=== PATIENT | female | born 1935 | race Caucasian/White ===

== ENCOUNTER 2020-10-30 11:21 | Day surgery (SDC) | payer OTHER, BC ==
[2020-10-25 14:30] LABS: Absolute Lymphocytes (CBC) 3.2 K/uL (0.7-4.9); Basophils % 0.4 % (0-1.3); Hematocrit 36.3 % (36.0-45.0); Lymphocytes % 38.6 % (15.3-44.8); MPV 7.4 fL (7.6-11.3); RBC Red Blood Cell Count 4.08 M/uL (3.86-4.86)
[2020-10-25 14:30] LABS: Urine Appearance CLEAR (Clear); Urine Bilirubin NEGATIVE (Negative); Urine Blood NEGATIVE (Negative); Urine Color YELLOW (Yellow); Urine Glucose NEGATIVE (Negative); Urine Protein NEGATIVE (Negative); Urine Urobilinogen 0.2 mg/dL (0.2-1.0); Urine pH 6.5 (5.0-7.0)
[2020-10-25 14:34] LABS: Urine Microscopic Reflex NO UMIC
[2020-10-25 14:49] LABS: Protime INR 1.01
[2020-10-25 14:53] LABS: Potassium 3.9 mmol/L (3.5-5.1)
[2020-10-30] MEDS ORDERED: propofoL 200 MG/20 ML VIAL IV ONE (11:44)
[2020-10-30] MEDS ORDERED: FENTANYL CITR 100 MCG/2 ML ONE ×2 (11:44→13:21)
[2020-10-30] MEDS ORDERED: LIDOCAINE 1% MPF 5 ML VIAL ONE (11:44)
[2020-10-30] MEDS ORDERED: ONDANSETRON 4 MG/2 ML VIAL ONE (11:45)
[2020-10-30] MEDS ORDERED: Ringers Lactate 1,000 ML IV ONE ×2 (11:46→13:38)
[2020-10-30] MEDS ORDERED: CEFAZOLIN/SWI 1gm 2 GM/20 ML SYR ONE (11:47)
[2020-10-30] MEDS ORDERED: ACETAMINOPHEN 500 MG TAB ONE (11:59)
[2020-10-30] MEDS ORDERED: GLYCOPYRROLATE 0.2 MG/ML SYR ONE (12:24)
[2020-10-30] MEDS ORDERED: dexAMETHasone 10 MG/ML VIAL ONE (12:44)
[2020-10-30] MEDS ORDERED: BUPIVACAINE 0.25% PF 30 ML VIAL ONE (12:44)
[2020-10-30] MEDS ORDERED: CEFAZOLIN/SWI 1gm 1 GM/10 ML SYR ONE (12:56)
[2020-10-30] MEDS ORDERED: NA CHLORIDE 0.9% 100 ML IV ONE (12:56)
[2020-10-30] MEDS ORDERED: VASOPRESSIN 20 UNIT/ML VIAL ONE (12:56)
[2020-10-30] MEDS ORDERED: MORPHINE 10 MG/ML VIAL ONE (14:43)
[2020-10-30] MEDS ORDERED: ONDANSETRON 4 MG/2 ML VIAL IV PRN (14:57)
[2020-10-30] MEDS ORDERED: PROMETHAZINE INJ 25 MG/ML AMP IV PRN (14:57)
[2020-10-30] MEDS ORDERED: Ringers Lactate 1,000 ML IV SCH ×2 (15:00→18:00)
--- NOTE | 2020-10-30 15:10 | P.BOP ---
Preoperative diagnosis: stg3 ant/apical, [id number], occult ANDREW Postoperative diagnosis: same, but only unilateral(Rt) 3rd degree PVD Primary procedure: A/P repairs, ant Rt SSLF colpo-hysteropexy, post enterocele repair, MUS Secondary procedure: perineorrhaphy cysto Gauge Maker: Asia Alexander Estimated blood loss: 50 Specimen: none Findings: -2/+2/+1/5/mod/8/-1/-1/-1,transverse ant wall fascial defect SSR,cysto joyner Anesthesia: General Complications: None Drain(s): Urinary catheter Implants: TVT-O Fluids & blood products: 1L LR Transferred to: Recovery Room Condition: Good
[2020-10-30 15:16] VITALS: O2SAT 100
[2020-10-30 16:02] LABS: Absolute Lymphocytes (CBC) 2.1 K/uL (0.7-4.9); Basophils % 0.5 % (0-1.3); Hematocrit 33.7 % (36.0-45.0); Lymphocytes % 16.3 % (15.3-44.8); RBC Red Blood Cell Count 3.82 M/uL (3.86-4.86)
[2020-10-30 16:23] LABS: Potassium 4.1 mmol/L (3.5-5.1)
[2020-10-30 17:15] VITALS: BMI 24.5
[2020-10-30] MEDS: HYDROMORPHONE HCL 1 MG/ML INJ IV PRN ×2 (17:46→23:45)
[2020-10-30] MEDS: ACETAMINOPHEN 500 MG TAB PO PRN (20:00)
[2020-10-30] MEDS ORDERED: ATORVASTATIN 10 MG TAB PO SCH (21:00)
[2020-10-31 05:26] LABS: Hematocrit 31.6 % (36.0-45.0)
[2020-10-31] MEDS ORDERED: VIT D3 PO SCH (09:00)
[2020-10-31] MEDS ORDERED: AMLODIPINE 2.5 MG TAB PO SCH (09:00)
[2020-10-31] MEDS ORDERED: DOCUSATE NA 100 MG CAP PO SCH (09:00)
[2020-10-31] MEDS ORDERED: MGOX PO SCH (09:00)
[2020-10-31] MEDS ORDERED: [UNRECOGNIZED DRUG - OTHER] PO SCH (09:00)
[2020-10-31] MEDS ORDERED: CA CITRATE PO SCH (09:00)
[2020-10-31] MEDS ORDERED: HOME MED 1 EA UNK (Naproxen Sodium [Aleve] 220 MG Tablet) PO SCH (09:00)
[2020-10-31] MEDS ORDERED: FEXOFENADINE 180 MG TAB PO SCH (09:00)
[2020-10-31] MEDS ORDERED: HOME MED 1 EA UNK (Losartan/Hydrochlorothiazide [Losartan-Hctz 100-25 Mg Tab] 1 EACH Table PO SCH (09:00)
[2020-10-31] MEDS ORDERED: B6 PO SCH (09:00)
[2020-10-31] MEDS: ACETAMINOPHEN 500 MG TAB PO PRN (10:22)
[2020-10-31 11:31] VITALS: BP 149/81
[2020-10-31 14:54] VITALS: TEMP 98.3
--- NOTE | 2020-11-04 21:32 | OP ---
Date of Procedure: 10/30/2020 Surgeon: Nina Carlisle MD Air Quality Specialist: Asia Alexander. 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 Primary Procedure: Anterior-posterior repairs, anterior approach right sacrospinous ligament fixatio n, colpohysteropexy, posterior enterocele repair, midurethral sling transobturator perineorrhaphy, an d cystoscopy. Anesthesia: General endotracheal. Estimated Blood Loss: 50. Specimens: None. Complications: No complications. Drains: Urinary catheter. Packings: Small vaginal packing. Implants: TVTO. Fluids: 1 L. Condition: The patient was transferred to the recovery room in stable condition. Findings: POP-Q -2, +2, +1, 5, moderate 8, -1, -1, -1, transverse anterior wall fascial defect for w hich a site-specific repair was done. Cysto with patent ureters. Indications: The patient is an 85-year-old female with symptomatic vaginal prolapse, unable to be co ntinuing pessary management, desired vaginal closure or a definitive treatment for her prolapse. She was consented for colpocleisis and perineorrhaphy in the mid urethral sling; however, fully understa nding that. Reconstructive repair had to be done if the colpocleisis is not feasible. She was conse nted and brought to the OR. She had a medical clearance prior to the procedure. Procedure In Detail: After informed consent was re-verified, the patient was taken back to the OR an d placed in a supine fashion on the operating table. Ancef was given. SCDs were started. After she was placed under anesthesia, she was positioned in the dorsal lithotomy position. Arms were positio shanelle appropriately, SCDs were started, time-out was done, and the procedure started. Lower abdomen, vulva, vagina, and perineum were prepped and draped in a sterile fashion. Bueno was p laced to drain the bladder and POP-Q was done as dictated above. Once I realized that the posterior wall defect was not very significant and that the left paravaginal support was actually significantly better than what was anticipated on clinical evaluation, the right paravaginal support was completel y lost with this asymmetry and the difficulty to bring the vault all the way down in order for me to denude the epithelium on the anterior and posterior sanchez and to match it. I decided to perform alberto nstructive repair due to proved feasibility for colpocleisis. Also of note, the anterior wall it was closely examined and an Allis clamp was placed on t he cervix. In the distal anterior wall, I could see that there was a transverse defect on the anteri or fascia that also could be repaired in a site-specific fashion after doing an apical support proced ure. Decided to proceed with an anterior approach of sacrospinous fixation because of the significan t right paravaginal defect and the anterior defect being the most significant part of the prolapse. I did a posterior approach that there potentially could be creating a worse chance of recurrence of a nterior wall prolapse, so once the decision was made, Allis clamp was placed in the distal anterior w all, proximal anterior wall making sure that this was central, then in the mid anterior wall in the m idline. Dilute vasopressin was injected in the anterior compartment. Then, an incision was made wit h a scalpel, extended with the Metzenbaum scissors both superiorly all the way to the bladder neck an d all the way down to the cervix. The vaginal flaps were opened up doing the dissection thin separat ing the vaginal epithelium and subepithelium from the connective tissue as well as the bladder where connective tissue was absent on both sides all the way to the sulcus on the left and on the right all the way into the paravaginal space. Once the ischial spine was palpated, the pararectal space was e ntered. Then, the ischial spine was well isolated and then the sacrospinous ligament complex was magdalena ntified and flexed by sweeping the rectum medially and posteriorly off the complex. This was isolate d and cleared up for placement of the sutures. Then, the fascial defect in the anterior compartment was also well exposed and the connective tissue was dissected away from the bladder, then distally th e connective tissue was also picked up and the bladder dissected away from it. So, once all the defe cts were well exposed, the Capio suture was taken, Prolene stitch used for placing 2 sutures in the m id ligament and 1.5 cm away from the ischial spine, second suture. Both these sutures were held on a straighten and curved clamps and the cervix was dissected and well exposed. The bladder was dissect ed off the cervix. Then, the 2 sutures were placed lateral to each other in the right lateral aspect of the cervix and the connective tissue of the anterior vaginal wall in the proximal aspect. Once t hese were all held on the sutures, then 2-0 PDS was used to reconnect the connective tissue of the di stal and proximal defects together in a continuous running fashion. Then, a small amount of space wa s left for tying the sacrospinous sutures. No vaginal epithelium was trimmed as I saw that essential for keeping the anterior vaginal wall tension-free. The left wall had more redundant vaginal epithe lium than the right side. Then, the sacrospinous sutures were tied down and this made it a little di fficult for me to do the vaginal epithelial closure, but once these were tied down and I felt this re pair was satisfactory, then the vaginal epithelial closure was started at the distalmost aspect in a continuous running locked fashion, 2-0 Vicryl was used to close the entire defect of the vaginal epit helium. Once there was excellent closure, there was slight redundancy of the left lateral anterior v aginal epithelium, but I anticipate this to regress and not asymptomatic as the fascia underneath has been repaired. Mid urethral area was picked up with 2 Allis clamps, injected with dilute vasopressin, incision made, and under the fascia tunnels were created to the ipsilateral obturator space hugging the inferior pu bic ramus at a 45-degree angle to the horizontal and vertical planes. Once the obturator membrane wa s perforated, the [place] were opened up to expand the tract. Similar dissection on the opposite side o n the left side was done and the wing guide was placed, spike was passed, hugging the inferior pubic ramus, exiting at a point above the level of the horizontal line drawn at the external meatus 2 cm ou tside the groin fold and 1 cm above it. The exit point, the plastic dilator was pulled out. The she ath and the mesh were grasped with Lakshmi clamps, opposite side similar pass was taken after placing t he wing guide and exited at a symmetric point on the left medial thigh and plastic dilator was pulled out. The mesh and sheaths were held with a Lakshmi. Tensioning was done under the suburethral area w ith the help of Metzenbaum scissors. The plastic sheaths were pulled out completely, mesh was tensio shanelle, and placed appropriately and tensioned appropriately. Slightly more tension than was optimal so dragged the mesh down somewhat to loosen it, and then thorough irrigation was performed with the hel p of antibiotic solution. Then, closure of the vaginal epithelium with a 3-0 Vicryl continuous runni ng suture. Mesh was trimmed at the skin, flushed with the skin, and skin released from the underlyin g mesh. Skin glue was used for closure of this incision. Bueno was removed and cystoscopy was perfo rmed. Good jets of urine from both ureteric orifices. No evidence of any trauma or foreign body in the bladder. The bladder was re-catheterized and clamped and left superiorly. Posterior repair was performed with the help of 2 Allis clamps placed at both of the hymenal remnants . Then, in the midline posterior wall, another Allis was placed in the mid level of the posterior wa ll dividing it into the top and bottom half. Then, a rocky-shaped incision was made with a 15 blad e. Vaginal epithelium denuded in the distal half. Connective tissue dissected. Vasopressin was use d in this compartment as well. The perineal body was dissected and a good exposure of the lateral as pects of the remnants of the perineal body was obtained. Then, the posterior defect and a posterior enterocele were dissected free from the vaginal epithelium. The enterocele was closed with the help of 3-0 Vicryl pursestring suture. Then, 2-0 PDS was used to repair the distal posterior fascia from [id number] and then reattached to the perineal body reconstruction with 2-0 Vicryl sutures x3. Rec niles finger was used to prevent trauma and also to understand the depth. Then, the levators _ Vicryl suture was placed and all the sutures were tied after changing the gloves. The PDS was plac ed to re-attach to the perineal body. Then, there was optimal decrease in the vaginal hiatus and the n the perineal body was well supported as well. Then, vaginal epithelial closure was performed in a transverse fashion with a continuous running 2-0 Vicryl suture and perineum was closed with the help of 3-0 Vicryl in a subcutaneous and subcuticular fashion. Bueno was left in place. Light vaginal pa cking was done. Instrument, needle, and sponge counts were correct. EBL was 50. The patient tolera jennie the procedure well. She was recovered from anesthesia and taken to PACU in stable condition. Fi ndings were discussed with her who understood the change in plan and performance of this procedure and she was admitted to overnight observation an d discharged in the morning. DARSHAN/ARDEN Voice ID: [id number] Report ID: [id number]
== END 2020-10-31 12:00 | disposition home or self-care (01) ==
LOC: OR 11:21 → 2ND-WC 14:57 → OR 10-31 12:00
PROVIDERS: ATTEND Obstetrics & Gynecology
PROC: 0TSD0ZZ Reposition Urethra, Open Approach (ICD-10-PCS; 2020-10-30)
PROC: 0HQ9XZZ Repair Perineum Skin, External Approach (ICD-10-PCS; 2020-10-30)
PROC: 0UQF0ZZ Repair Cul-de-sac, Open Approach (ICD-10-PCS; 2020-10-30)
PROC: 0JQC0ZZ Repair Pelvic Region Subcutaneous Tissue and Fascia, Open Approach (ICD-10-PCS; 2020-10-30)
PROC: 0USG7ZZ Reposition Vagina, Via Natural or Artificial Opening (ICD-10-PCS; principal; 2020-10-30 12:45)
DX: N81.3 Complete uterovaginal prolapse (principal); N39.3 Stress incontinence (female) (male); I10 Essential (primary) hypertension; E78.00 Pure hypercholesterolemia, unspecified; Z20.822 Contact with and (suspected) exposure to COVID-19
CPT/HCPCS: 57282; 57288; 57265; 85025 ×2; 80048 ×2; 36415 ×3; 86900; 86850; 85610; 86901; 85730; 85018; 85014; 81003; 94010; U0003; J2704; J3010 ×2; J1100; J1170 ×2; J0690 ×2; J7120 ×3; J2405